=== PATIENT | male | born 1965 | race Caucasian/White ===

== ENCOUNTER → 2016-11-19 | Outpatient (CLI) | payer BC ==
[~2016-11-19] MED LIST: FERR325T74 PO; IRON PO; OMEP40CA PO; RANI300T PO; SERT100T PO
--- NOTE | 2016-11-19 11:03 | DIAGNOSTIC IMAGING REPORT ---
TWO VIEW CHEST CLINICAL HISTORY: Chest congestion. FINDINGS: PA and lateral chest radiographs are compared to chest x-ray and chest CT dated 09/12/2014. The cardiomediastinal silhouette is unremarkable. There is no airspace consolidation or pleural effusion. There is a questionable nodular density in the subpleural right upper lung. There is no pneumothorax. The bony thorax appears intact. IMPRESSION: 1. No active disease in the chest. 2. There is a questionable subpleural density in the right upper lung. This is of indeterminant significance and may simply represent superimposition of shadows. Correlation with a chest CT scan is recommended for further assessment and to exclude the possibility of underlying pulmonary nodule. Electronically signed by: Cornelius Swift M.D. 11/19/2016 11:02 AM Dictated Date/Time: 11/19/2016 10:59 AM
== END | disposition home or self-care (01) ==
LOC: C.RAD1850 10:27
PROVIDERS: ATTEND Nurse Practitioner Family
DX: R06.2 Wheezing (principal); J06.9 Acute upper respiratory infection, unspecified; J98.01 Acute bronchospasm

== ENCOUNTER → 2016-12-10 | Outpatient (CLI) | payer BC ==
--- NOTE | 2016-12-10 16:17 | DIAGNOSTIC IMAGING REPORT ---
(CHEST) THORAX WITHOUT CLINICAL HISTORY: ABNORMAL CHEST XRAY,COUGH,WHEEZING COMPARISON STUDY: 09/12/2014 , chest x-ray dated 11/19/2016 CT DOSE: 786.43 mGy.cm TECHNIQUE: CT of the thorax was performed from the thoracic inlet to the lung bases. Images are reviewed in the axial, sagittal, and coronal planes. IV contrast was not administered for this examination. FINDINGS: Thyroid: Imaged portions of the thyroid gland are normal in appearance. Thoracic aorta: The thoracic aorta is normal in course and caliber, noting standard 3 vessel arch anatomy. Heart: The heart is normal in size and configuration, without pericardial effusion. Lungs and pleural spaces: There are no pleural effusions. There is no focal pulmonary consolidation. The opacity described on the chest x-ray performed 11/19/2016 is felt to represent intrafissural fat. There is scattered calcified granulomas. Mediastinum: There are a few calcified nodes. There is no pathologic adenopathy Allison: There are few calcified hilar lymph nodes. There is no pathologic hilar adenopathy. Axilla: Clear. Upper abdomen: There is mild hepatic steatosis. The spleen is not imaged in its entirety. There is suspected mild splenomegaly Skeletal structures: There are no lytic or blastic osseous lesions. IMPRESSION: 1. No acute intrathoracic findings 2. Postinflammatory changes with calcified lymph nodes and scattered granulomas 3. The recently described right upper lung zone opacity, is felt to represent benign intrafissural fat. Electronically signed by: Torito Ghosh M.D. 12/10/2016 4:15 PM Dictated Date/Time: 12/10/2016 4:09 PM
== END | disposition home or self-care (01) ==
LOC: C.CTS 15:26
PROVIDERS: ATTEND Nurse Practitioner Family
DX: R05 Cough (principal); R93.8 Abnormal findings on diagnostic imaging of other specified body structures